=== PATIENT | female | born 1990 | race Caucasian/White ===

== ENCOUNTER 2017-02-13 13:39 | Observation (INO) | payer OTHER ==
[2017-02-13] VITALS (9 sets, daily range): BP systolic 126–165; BP diastolic 67–108; PULSE 54–87; RESP 15–20; TEMP 98–98.4; O2SAT 97–100
[~2017-02-13] VITALS: Ht 154.9 cm; Wt 90.0 kg
[~2017-02-13 13:39] MED LIST: ALEV220T14 PO
--- NOTE | 2017-02-13 14:01 | PD ---
Physical Exam Time Seen by Provider: 14:01 Narrative 26 y/o female with intermittent cp as well as sob, worse when lying down, for the past few days. Vital signs reviewed. Seen at triage desk. Awaiting bed placement. Data Data Last Documented VS Vital Signs Date Time Temp Pulse Resp B/P Pulse Ox O2 Delivery O2 Flow Rate FiO2 02/13/17 13:41 98.4 87 15 165/108 100 MDM Medical Record Reviewed: Yes Supervised Visit with FREDIS: Michele Hector Feb 13, 2017 14:01
[2017-02-13] MEDS ORDERED: SODIUM CHLORIDE 0.9% FLUSH 10 ML FLUSH IVF PRN (15:00)
[2017-02-13] MEDS ORDERED: DICL75TA PO (15:05)
[2017-02-13] MEDS ORDERED: SERT-129 PO (15:05)
[2017-02-13] MEDS ORDERED: LEVO25TA4 PO (15:05)
--- NOTE | 2017-02-13 15:18 | PD ---
HPI Chief Complaint: Chest Pain Time Seen by Provider: 15:05 Travel History International Travel<30 days: No Contact w/Intl Traveler<30days: No Traveled to known affect area: No History of Present Illness HPI 26-year-old female with a PMH of hyperlipidemia, anxiety, PTSD, hypothyroidism has chief complaint of intermittent midsternal chest pain that radiates to her back that lasts several seconds. This is associated with mild constant shortness of breath. She reports chest pain at times is worth with deep inspiration. She is not on hormonal therapy. No recent surgeries. No history of cancer. Reports mother had an WA at age 37. PFSH Past Medical History Asthma: Yes Anxiety: Yes Cancer: No Cardiovascular Problems: No Diabetes: No Diminished Hearing: No Endocrine: No Gastrointestinal Disorders: Yes ("STOMACH ISSUES" AVOIDS GLUTEN ) Genitourinary: No Hepatitis: No Hiatal Hernia: No Immune Disorder: No Medical other: Yes (HIGH TRIGLYCERIDES) Musculoskeletal: Yes (OCCAS MUSCLE SPASMS ) Neurologic: No Psychiatric: Yes (PTSD) Reproductive: No Respiratory: Yes (HX ASTHMA ) Thyroid Disease: Yes (hypo) Tetanus Vaccination: < 5 Years Influenza Vaccination: No ?: Not LMP: 3 weeks ago Past Surgical History Abdominal Surgery: No AICD: No Body Medical Devices: NONE Cardiac Surgery: No Ear Surgery: Yes (PE TUBES AGE 3 ) Endocrine Surgery: No Eye Surgery: No Genitourinary Surgery: No Gynecologic Surgery: No Joint Replacement: No Pacemaker: No Thoracic Surgery: No Tonsillectomy: Yes Tympanostomy Tube: Yes ( BABY) Other Surgery: Yes Social History Alcohol Use: Yes (once a month) Tobacco Use: No Substance Use: No Allergies-Medications (Allergen,Severity, Reaction): Coded Allergies: Shellfish (Verified Allergy, Severe, Hives, 02/13/17) Ceclor (Verified Allergy, Mild, RASH, 02/13/17) CHILDHOOD REACTION - UNKNOWN SPECIFICS Penicillin (Verified Allergy, Mild, RASH, 02/13/17) UNSURE OF REACTION - CHILDHOOD REACTION ADVISED BY PARENTS Suprax (Verified Allergy, Mild, RASH, 02/13/17) CHILDHOOD REACTION - UNKNOWN SPECIFICS Clindamycin (Verified Allergy, Unknown, 02/13/17) DIFFICULTY BREATHING; VOMITTING Sudafed (Unverified Allergy, Unknown, DIZZYNESS & NAUSEA, 02/13/17) Uncoded Allergies: honeysuckle (Allergy, Severe, Anaphylaxis, 02/13/17) Reported Meds & Prescriptions Reported Meds & Active Scripts Active Reported Diclofenac Sodium DR (Diclofenac Sodium) 75 Mg Tabdr 75 Mg PO BID Sertraline (Sertraline HCl) 100 Mg Tab 100 Mg PO DAILY Levothyroxine (Levothyroxine Sodium) 25 Mcg Tab 50 Mcg PO DAILY Review of Systems Except as stated in HPI: all other systems reviewed are Neg General / Constitutional: No: Fever Eyes: No: Visual changes HENT: No: Headaches Cardiovascular: Positive: Chest Pain or Discomfort Respiratory: Positive: Shortness of Breath Genitourinary: No: Dysuria Physical Exam Narrative GENERAL: Alert, well-appearing female in no acute distress. Resting comfortably on stretcher laughing with family member in room. SKIN: Focused skin assessment warm/dry. HEAD: Atraumatic. Normocephalic. EYES: Pupils equal and round. No scleral icterus. No injection or drainage. ENT: No nasal bleeding or discharge. Mucous membranes pink and moist. NECK: Trachea midline. No JVD. CARDIOVASCULAR: Regular rate and rhythm. No murmur appreciated. No murmur or gallop RESPIRATORY: No accessory muscle use. Clear to auscultation. Breath sounds equal bilaterally. GASTROINTESTINAL: Abdomen soft, non-tender, nondistended. Hepatic and splenic margins not palpable. MUSCULOSKELETAL: No obvious deformities. No clubbing. No cyanosis. No edema. NEUROLOGICAL: Awake and alert. No obvious cranial nerve deficits. Motor grossly within normal limits. Normal speech. PSYCHIATRIC: Appropriate mood and affect; insight and judgment normal. Data Data Last Documented VS Vital Signs Date Time Temp Pulse Resp B/P Pulse Ox O2 Delivery O2 Flow Rate FiO2 02/13/17 15:30 62 20 99 Room Air 02/13/17 15:29 138/91 02/13/17 13:41 98.4 Orders Electrocardiogram (02/13/17 15:00) Basic Metabolic Panel (Bmp) (02/13/17 15:00) B-Type Natriuretic Peptide (02/13/17 15:00) Ckmb (Isoenzyme) Profile (02/13/17 15:00) Complete Blood Count With Diff (02/13/17 15:00) D-Dimer (02/13/17 15:00) Troponin I (02/13/17 15:00) Chest, Single Ap (02/13/17 15:00) Ecg Monitoring (02/13/17 15:00) Bilateral Bp Monitoring (02/13/17 15:00) Iv Access Insert/Monitor (02/13/17 15:00) Oximetry (02/13/17 15:00) Sodium Chloride 0.9% Flush (Ns Flush) (02/13/17 15:00) CKMB (02/13/17 15:25) CKMB% (02/13/17 15:25) Admit Order (Ed Use Only) (02/13/17 16:46) Labs Laboratory Tests Test 02/13/17 15:25 White Blood Count 6.2 TH/MM3 Red Blood Count 5.03 MIL/MM3 Hemoglobin 14.6 GM/DL Hematocrit 41.4 % Mean Corpuscular Volume 82.3 FL Mean Corpuscular Hemoglobin 29.1 PG Mean Corpuscular Hemoglobin 35.4 % Concent Red Cell Distribution Width 13.2 % Platelet Count 228 TH/MM3 Mean Platelet Volume 8.5 FL Neutrophils (%) (Auto) 61.5 % Lymphocytes (%) (Auto) 26.4 % Monocytes (%) (Auto) 9.3 % Eosinophils (%) (Auto) 2.5 % Basophils (%) (Auto) 0.3 % Neutrophils # (Auto) 3.8 TH/MM3 Lymphocytes # (Auto) 1.6 TH/MM3 Monocytes # (Auto) 0.6 TH/MM3 Eosinophils # (Auto) 0.2 TH/MM3 Basophils # (Auto) 0.0 TH/MM3 CBC Comment DIFF FINAL Differential Comment D-Dimer Quantitative (PE/DVT) LESS THAN 0.19 MG/L FEU Sodium Level 140 MEQ/L Potassium Level 3.9 MEQ/L Chloride Level 106 MEQ/L Carbon Dioxide Level 25.5 MEQ/L Anion Gap 9 MEQ/L Blood Urea Nitrogen 11 MG/DL Creatinine 0.83 MG/DL Estimat Glomerular Filtration 84 ML/MIN Rate Random Glucose 75 MG/DL Calcium Level 9.1 MG/DL Total Creatine Kinase 193 U/L Creatine Kinase MB 1.2 NG/ML Creatine Kinase MB % 0.6 % Troponin I LESS THAN 0.02 NG/ML B-Type Natriuretic Peptide 27 PG/ML MDM Medical Decision Making Medical Screen Exam Complete: Yes Emergency Medical Condition: Yes Differential Diagnosis ACS, PE, GERD, Costochondritis, PNA, anxiety Narrative Course 26-year-old female with 4 day history of intermittent midsternal nonradiating chest pain lasting several seconds each episode. This is associated with constant mild shortness of breath. Patient has no cardiac history. She reports that her mother had an WA at 37. She was evaluated on an outpatient [facility] clinic on for this chest pain she reports she had a abnormal EKG with inverted T-waves and normal chest x-ray at that time. She was instructed to return for repeat EKG today which she did and they recommended she follow up outpatient. IV access established, chest x-ray ordered and pending, labs ordered and pending. CBC unremarkable BMP unremarkable Cardiac enzymes negative Chest x-ray no acute disease Patient will be admitted to chest pain center for serial EKGs and troponins. Diagnosis Primary Impression: Chest pain Qualified Code: R07.9 - Chest pain, unspecified type Admitting Information Admitting Physician Requests: Admit Eugenia Cain Feb 13, 2017 15:18
--- NOTE | 2017-02-13 15:42 | PD ---
Data Data Last Documented VS Vital Signs Date Time Temp Pulse Resp B/P Pulse Ox O2 Delivery O2 Flow Rate FiO2 02/13/17 15:30 62 20 99 Room Air 02/13/17 15:29 138/91 02/13/17 13:41 98.4 Orders Electrocardiogram (02/13/17 15:00) Basic Metabolic Panel (Bmp) (02/13/17 15:00) B-Type Natriuretic Peptide (02/13/17 15:00) Ckmb (Isoenzyme) Profile (02/13/17 15:00) Complete Blood Count With Diff (02/13/17 15:00) D-Dimer (02/13/17 15:00) Troponin I (02/13/17 15:00) Chest, Single Ap (02/13/17 15:00) Ecg Monitoring (02/13/17 15:00) Bilateral Bp Monitoring (02/13/17 15:00) Iv Access Insert/Monitor (02/13/17 15:00) Oximetry (02/13/17 15:00) Sodium Chloride 0.9% Flush (Ns Flush) (02/13/17 15:00) CKMB (02/13/17 15:25) CKMB% (02/13/17 15:25) Admit Order (Ed Use Only) (02/13/17 16:46) Labs Laboratory Tests Test 02/13/17 15:25 White Blood Count 6.2 TH/MM3 Red Blood Count 5.03 MIL/MM3 Hemoglobin 14.6 GM/DL Hematocrit 41.4 % Mean Corpuscular Volume 82.3 FL Mean Corpuscular Hemoglobin 29.1 PG Mean Corpuscular Hemoglobin 35.4 % Concent Red Cell Distribution Width 13.2 % Platelet Count 228 TH/MM3 Mean Platelet Volume 8.5 FL Neutrophils (%) (Auto) 61.5 % Lymphocytes (%) (Auto) 26.4 % Monocytes (%) (Auto) 9.3 % Eosinophils (%) (Auto) 2.5 % Basophils (%) (Auto) 0.3 % Neutrophils # (Auto) 3.8 TH/MM3 Lymphocytes # (Auto) 1.6 TH/MM3 Monocytes # (Auto) 0.6 TH/MM3 Eosinophils # (Auto) 0.2 TH/MM3 Basophils # (Auto) 0.0 TH/MM3 CBC Comment DIFF FINAL Differential Comment D-Dimer Quantitative (PE/DVT) LESS THAN 0.19 MG/L FEU Sodium Level 140 MEQ/L Potassium Level 3.9 MEQ/L Chloride Level 106 MEQ/L Carbon Dioxide Level 25.5 MEQ/L Anion Gap 9 MEQ/L Blood Urea Nitrogen 11 MG/DL Creatinine 0.83 MG/DL Estimat Glomerular Filtration 84 ML/MIN Rate Random Glucose 75 MG/DL Calcium Level 9.1 MG/DL Total Creatine Kinase 193 U/L Creatine Kinase MB 1.2 NG/ML Creatine Kinase MB % 0.6 % Troponin I LESS THAN 0.02 NG/ML B-Type Natriuretic Peptide 27 PG/ML MDM Supervised Visit with FREDIS: Yes Narrative Course I, Dr. Fournier, have reviewed the advance practice practitioner's documentation and am in agreement, met with the patient face to face, made the diagnosis, and the medical decision making was done by me. *My assessment and Findings: Patient seen and examined by me in addition to Eugenia OBANDO, is a 26-year-old female with a history of hyperlipidemia and family history of heart disease mother had her first heart attack in her early 30s presents emergency department for evaluation of inverted T wave shortness of breath particularly at night and some chest pain in the middle of her chest radiation to her back. Initial workup troponin and d-dimer has been ordered. Will reassess patient after these are done Patient with risk factors was discussed with her inpatient versus outpatient additional workup and she opts for inpatient at this time. Will be placed in the chest pain observation Center. Admitting Information Admitting Physician Requests: Observation Condition: Stable David Fournier MD Feb 13, 2017 15:42
--- NOTE | 2017-02-13 15:43 | RADRPT ---
EXAM DATE/TIME: 02/13/2017 15:07 [facility] COMPARISON: No previous studies available for comparison. INDICATIONS : Shortness of breath. MEDICAL HISTORY : Asthma SURGICAL HISTORY : None. ENCOUNTER: Initial ACUITY: 3 days PAIN SCORE: 2/10 LOCATION: Right chest FINDINGS: A single view of the chest demonstrates the lungs to be symmetrically aerated without evidence of mas s, infiltrate or effusion. The cardiomediastinal contours are unremarkable. Osseous structures are intact. CONCLUSION: Normal examination. Mic Wagner Jr., MD on February 13, 2017 at 15:41 Board Certified Radiologist. This report was verified electronically.
[2017-02-13 15:51] LABS: AUTOMATED NEUTROPHIL # 3.8 TH/MM3 (1.8-7.7); BASOPHIL % 0.3 % (0.0-2.0); EOSINOPHIL # 0.2 TH/MM3 (0-0.4); EOSINOPHIL % 2.5 % (0.0-4.0); HEMATOCRIT 41.4 % (35.0-46.0); HEMO FLAGS DIFF FINAL; LYMPH % 26.4 % (9.0-44.0); LYMPHOCYTE # 1.6 TH/MM3 (1.0-4.8); MEAN CELL VOLUME 82.3 FL (80.0-100.0); MEAN CORPUSCULAR HEMOGLOBIN 29.1 PG (27.0-34.0); MEAN CORPUSCULAR HGB CONC 35.4 % (32.0-36.0); MONO % 9.3 % (0.0-8.0); NEUT % 61.5 % (16.0-70.0); PLATELET COUNT 228 TH/MM3 (150-450); RED BLOOD COUNT 5.03 MIL/MM3 (4.00-5.30); RED CELL DISTRIBUTION WIDTH 13.2 % (11.6-17.2); WHITE BLOOD COUNT 6.2 TH/MM3 (4.0-11.0)
[2017-02-13 16:13] LABS: ANION GAP 9 MEQ/L (5-15); BICARBONATE 25.5 MEQ/L (21.0-32.0); BLOOD UREA NITROGEN 11 MG/DL (7-18); CHLORIDE 106 MEQ/L (98-107); GLOMERULAR FILTRATION RATE 84 ML/MIN (>89); POTASSIUM 3.9 MEQ/L (3.5-5.1); SODIUM (NA) 140 MEQ/L (136-145)
[2017-02-13 16:16] LABS: CREATINE KINASE 193 U/L (26-192)
[2017-02-13 16:29] LABS: CKMB 1.2 NG/ML (0.5-3.6)
--- NOTE | 2017-02-13 17:53 | HHI.HP ---
HPI Primary Care Physician Candi Lewis Chief Complaint Right sided chest wall pain History of Present Illness Mrs. Whelan is a 26-year-old female patient with a known medical history of hyperlipidemia and hypothyroidism who presented to the ED with complaints of right sided chest pain that began on Monday upon awakening. Pain occurred along the right side of the sternum. Denies any radiation. Patient states that the pain was intermittent lasting several seconds over the course of several hours. She states the pain was reproducible upon palpation. Pain was aggravated by deep inspiration and expiration. Patient does complain of associated shortness of breath, intermittent nausea and diaphoresis. She does state that her mother had an AK at the age of 37 of unknown cause. Patient does not have a cardiac history. She did mention that upon her presentation to the [facility] on Monday, non=specific inverted T-waves were seen on her EKG. Review of Systems Respiratory: COMPLAINS OF: Shortness of breath Cardiovascular: COMPLAINS OF: Chest pain Gastrointestinal: COMPLAINS OF: Nausea Endocrine: COMPLAINS OF: Thyroid disease Past Family Social History Allergies: Coded Allergies: Ceclor (Verified Allergy, Mild, RASH, 02/13/17) CHILDHOOD REACTION - UNKNOWN SPECIFICS Penicillin (Verified Allergy, Mild, RASH, 02/13/17) UNSURE OF REACTION - CHILDHOOD REACTION ADVISED BY PARENTS Suprax (Verified Allergy, Mild, RASH, 02/13/17) CHILDHOOD REACTION - UNKNOWN SPECIFICS Clindamycin (Verified Allergy, Unknown, 02/13/17) DIFFICULTY BREATHING; VOMITTING Sudafed (Unverified Allergy, Unknown, DIZZYNESS & NAUSEA, 02/13/17) Past Medical History Asthma Anxiety Hypertriglyceridemia PTSD Hypothyroidism Past Surgical History Tonsillectomy Tympanostomy tubes Reported Medications Reported Meds & Active Scripts Active Reported Diclofenac Sodium DR (Diclofenac Sodium) 75 Mg Tabdr 75 Mg PO BID Sertraline (Sertraline HCl) 100 Mg Tab 100 Mg PO DAILY Levothyroxine (Levothyroxine Sodium) 25 Mcg Tab 25 Mcg PO DAILY Active Ordered Medications Current Medications Medications (Trade) Dose Ordered Sig/Priya Route Start Time Stop Time Status Last Admin (NS Flush) 2 ml UNSCH PRN IVF 02/13/17 15:00 Family History Maternal family medical history significant for cardiovascular disease and known AK at the age of 3737 years old. Social History Patient denies any current or past tobacco use. Admits to occasional alcohol use. Denies any illicit drug use. Physical Exam Vital Signs Vital Signs Date Time Temp Pulse Resp B/P Pulse Ox O2 Delivery O2 Flow Rate FiO2 02/13/17 17:00 54 19 132/67 97 Room Air 02/13/17 15:30 62 20 99 Room Air 02/13/17 15:29 100 Room Air 02/13/17 15:29 64 19 138/91 99 Room Air 02/13/17 15:00 68 19 138/91 98 Room Air 02/13/17 13:41 98.4 87 15 165/108 100 Physical Exam General: Patient denies fevers, chills recent, and recent travel HEENT: Patient denies headache, sore throat, difficulty swallowing. Cardiovascular: Has the chest discomfort as mentioned above. Denies sensation of heart beating rapidly or irregularly. No syncope. Intermittent diaphoresis. Respiratory: Intermittent shortness of breath. Reproducible chest pain. Denies coughing wheezing or hemoptysis. GI: Intermittent nausea. Patient denies vomiting, diarrhea, abdominal pain, bloody stools. Musculoskeletal: Patient denies joint pain or edema. Denies calf pain or edema. Neurovascular: Patient denies numbness, tingling, weakness in extremities. Denies headache. Endocrine: Denies polyuria and polydipsia. Hematologic: Denies easy bruising. Skin: Denies rash or itching. Laboratory Laboratory Tests Test 02/13/17 15:25 White Blood Count 6.2 Red Blood Count 5.03 Hemoglobin 14.6 Hematocrit 41.4 Mean Corpuscular Volume 82.3 Mean Corpuscular Hemoglobin 29.1 Mean Corpuscular Hemoglobin 35.4 Concent Red Cell Distribution Width 13.2 Platelet Count 228 Mean Platelet Volume 8.5 Neutrophils (%) (Auto) 61.5 Lymphocytes (%) (Auto) 26.4 Monocytes (%) (Auto) 9.3 Eosinophils (%) (Auto) 2.5 Basophils (%) (Auto) 0.3 Neutrophils # (Auto) 3.8 Lymphocytes # (Auto) 1.6 Monocytes # (Auto) 0.6 Eosinophils # (Auto) 0.2 Basophils # (Auto) 0.0 CBC Comment DIFF FINAL Differential Comment D-Dimer Quantitative (PE/DVT) LESS THAN 0.19 Sodium Level 140 Potassium Level 3.9 Chloride Level 106 Carbon Dioxide Level 25.5 Anion Gap 9 Blood Urea Nitrogen 11 Creatinine 0.83 Estimat Glomerular Filtration 84 Rate Random Glucose 75 Calcium Level 9.1 Total Creatine Kinase 193 Creatine Kinase MB 1.2 Creatine Kinase MB % 0.6 Troponin I LESS THAN 0.02 B-Type Natriuretic Peptide 27 Result Diagram: 02/13/17 1525 02/13/17 1525 Imaging Last 24 hours Impressions Chest X-Ray 02/13/17 1500 Signed Impressions: Service Date/Time: Monday, February 13, 2017 15:07 - CONCLUSION: Normal examination. Mic Wagner Jr., MD Assessment and Plan Assessment and Plan * Right sided chest pain: likely musculoskeletal in nature. Patient will continue to have serial cardiac enzymes and EKGs for ruling out purposes. She' ll be continued to be monitored overnight for any potential arrhythmias. She'll be seen by Dr. Joaquin in the morning and further plan to the implant at that time. Toradol 30 mg IV ordered x 1. [place] 1 tab q4h PRN per pain scale. * Nausea: Zofran 4 mf IV PRN. * Anxiety: Xanax 0.25 mg q8h PO PRN * Hypothyroidism: Will have a TSH added to lab draw. Patient has been taking current medication regimen for the last 6 months, denies any recent medication change. * Hyperlipidemia: Heart healthy diet. Encourage healthy eating and weight loss. Patient is stable at this time. She is agreeable to this plan. Anders Mcdonald Feb 13, 2017 17:53
[2017-02-13] MEDS ORDERED: KETOROLAC TROMETHAMINE 30 MG/ML (IVP) VIAL IVP ONE (18:00)
[2017-02-13] MEDS ORDERED: SODIUM CHLORIDE 0.9% FLUSH 5 ML FLUSH IVF PRN (18:00)
[2017-02-13] MEDS ORDERED: ONDANSETRON HCL 4 MG/2 ML VIAL IV PRN (18:00)
[2017-02-13] MEDS ORDERED: ACETAMINOPHEN/HYDROcodone 325 MG/7.5 MG TAB PO PRN (18:00)
[2017-02-13] MEDS ORDERED: ACETAMINOPHEN 500 MG CPLT PO PRN (18:00)
[2017-02-13] MEDS ORDERED: ALPRAZolam 0.25 MG TAB PO PRN (18:00)
[2017-02-13] MEDS: PANTOPRAZOLE SOD 40 MG DELAYED RELEASE TAB PO SCH (18:24)
[2017-02-13 19:14] LABS: CREATINE KINASE 169 U/L (26-192)
[2017-02-13 19:26] LABS: CKMB 0.7 NG/ML (0.5-3.6)
[2017-02-13] MEDS: SODIUM CHLORIDE 0.9% FLUSH 5 ML FLUSH IVF SCH (20:54)
[2017-02-13 22:11] LABS: CREATINE KINASE 162 U/L (26-192)
[2017-02-13 22:24] LABS: CKMB 0.8 NG/ML (0.5-3.6)
[2017-02-14 03:56] VITALS: BP 124/79; PULSE 58; RESP 18; TEMP 97.6; O2SAT 98
[2017-02-14 04:28] VITALS: PULSE 54
[2017-02-14] MEDS ORDERED: LEVOTHYROXINE SODIUM 25 MCG TAB PO SCH (06:00)
[2017-02-14 08:04] VITALS: PULSE 56
[2017-02-14 08:16] VITALS: BP 109/74; PULSE 56; RESP 20; TEMP 97.7; O2SAT 96
[2017-02-14] MEDS: PANTOPRAZOLE SOD 40 MG DELAYED RELEASE TAB PO SCH (08:42)
[2017-02-14] MEDS: SODIUM CHLORIDE 0.9% FLUSH 5 ML FLUSH IVF SCH (08:43)
[2017-02-14] MEDS ORDERED: SERTRALINE HCL 100 MG TAB PO SCH (09:00)
[2017-02-14] MEDS ORDERED: ASPIRIN 325 MG TAB PO SCH (09:00)
--- NOTE | 2017-02-14 09:16 | HHI.DCPOC ---
Discharge Care Plan Diagnosis: (1) Musculoskeletal chest pain (2) Situational stress Goals to Promote Your Health * To prevent worsening of your condition and complications * To maintain your health at the optimal level Directions to Meet Your Goals Take your medications as prescribed Follow your dietary instruction Follow activity as directed Keep your appointments as scheduled Take your immunizations and boosters as scheduled If your symptoms worsen call your PCP, if no PCP go to Urgent Care Center or Emergency Room Smoking is Dangerous to Your Health. Avoid second hand smoke Call the 24-hour hour crisis hotline for domestic abuse at [place] Feb 14, 2017 09:15
--- NOTE | 2017-02-14 09:42 | EKG ---
Date Performed: 02/13/2017 Time Performed: 21:27:08 PTAGE: 26 years EKG: SINUS BRADYCARDIA NONSPECIFIC T-WAVE ABNORMALITY BORDERLINE ECG Since PREVIOUS TRACING , no significant change noted PREVIOUS TRACIN02/13/2017 18.18 DOCTOR: Ghislaine Joaquin Interpretating Date/Time 02/14/2017 09:42:21
--- NOTE | 2017-02-14 09:44 | EKG ---
Date Performed: 02/13/2017 Time Performed: 18:18:35 PTAGE: 26 years EKG: SINUS BRADYCARDIA MODERATE T-WAVE ABNORMALITY, CONSIDER ANTERIOR ISCHEMIA ABNORMAL ECG Sinc e PREVIOUS TRACING , no significant change noted PREVIOUS TRACIN02/13/2017 15.13 DOCTOR: Ghislaine Joaquin Interpretating Date/Time 02/14/2017 09:43:39
--- NOTE | 2017-02-14 09:45 | EKG ---
Date Performed: 02/13/2017 Time Performed: 15:13:58 PTAGE: 26 years EKG: Sinus rhythm MODERATE T-WAVE ABNORMALITY, CONSIDER ANTEROLATERAL ISCHEMIA ABNORMAL ECG Since PREVIOUS TRACING , no significant change noted PREVIOUS TRACIN08/11/2009 10.20 DOCTOR: Ghislaine Joaquin Interpretating Date/Time 02/14/2017 09:44:27
== END 2017-02-14 11:41 | disposition home or self-care (01) ==
LOC: NEPD 13:39 → NEDA 16:48 → NEPFCDU 19:09
PROVIDERS: ADMIT Internal Medicine Cardiovascular Disease; ATTEND Internal Medicine Cardiovascular Disease
DX: R07.89 Other chest pain (principal); R11.0 Nausea; F41.9 Anxiety disorder, unspecified; E03.9 Hypothyroidism, unspecified; E78.5 Hyperlipidemia, unspecified; F43.10 Post-traumatic stress disorder, unspecified; R06.02 Shortness of breath; R94.31 Abnormal electrocardiogram [ECG] [EKG]; J45.909 Unspecified asthma, uncomplicated; E78.1 Pure hyperglyceridemia; Z82.49 Family history of ischemic heart disease and other diseases of the circulatory system; Z79.899 Other long term (current) drug therapy
CPT/HCPCS: 71010; 80048; 82550; 82552; 83880; 84443; 84484; 84703; 85025; 85379; 93005; 96374; 99285; G0378; J1885

== ENCOUNTER 2017-07-03 14:01 | Emergency (ER) | payer OTHER ==
[~2017-07-03] VITALS: Ht 156.2 cm; Wt 92.7 kg
[~2017-07-03 14:01] MED LIST changes: -ALEV220T14 PO; +DICL75TA PO; +LEVO25TA4 PO; +SERT-129 PO
[2017-07-03 14:02] VITALS: BP 122/76; PULSE 119; RESP 14; TEMP 98.8; O2SAT 97
[2017-07-03] MEDS ORDERED: IOHEXOL 350 MG/ML 10 ML VIAL (for RAD DIAG) IVCONTRAST ONE (14:02)
[2017-07-03] MEDS ORDERED: SODIUM CHLOR 0.9% 1000 ML INJ 1,000 ML IV SCH (14:51)
--- NOTE | 2017-07-03 14:51 | PD ---
HPI Chief Complaint: Abdominal Pain Time Seen by Provider: 14:39 Travel History International Travel<30 days: No Contact w/Intl Traveler<30days: No Traveled to known affect area: No History of Present Illness HPI 26-year-old female presents to emergency Department with complaint of abdominal cramping, nausea, vomiting, diarrhea that started last night. Denies fevers. Says she is experiencing chest pain and shortness of breath during vomiting only. She has history of chest pain and was seen here at the end of January and was admitted to the chest pain center and was told to follow up outpatient with a curator herbarium. She denies chest pain or shortness of breath without vomiting. Reports left-sided low back pain that started last night also. Denies dysuria , urinary frequency, vaginal discharge, odor. Denies history of abdominal surgeries. Is currently on her menses. Has not taken any medications or tried any treatments to alleviate her symptoms. Thinks that her symptoms may be associated with eating pork yesterday. No known relieving or aggravating factors. Primary care provider is Dr. Lewis. History of PTSD, anxiety, PCO S, asthma, mitral valve regurgitation, introverted T waves on EKG, bradycardia. Has no other medical complaints. No other modifying factors or associated signs and symptoms. PFSH Past Medical History Asthma: Yes Anxiety: Yes Depression: Yes Heart Rhythm Problems: Yes (t wave inversion when she was 18 years old) Cancer: No Cardiac Catheterization: No Cardiovascular Problems: Yes (inverted T-waves, valve regurg) High Cholesterol: Yes Congestive Heart Failure: No Diabetes: No Diminished Hearing: No Endocrine: No Gastrointestinal Disorders: Yes ("STOMACH ISSUES" AVOIDS GLUTEN ) Genitourinary: No Hepatitis: No Hiatal Hernia: No Hypertension: Yes Immune Disorder: No Medical other: Yes (HIGH TRIGLYCERIDES) Musculoskeletal: Yes (OCCAS MUSCLE SPASMS ) Neurologic: No Psychiatric: Yes (PTSD) Reproductive: No Respiratory: Yes (asthma) Immunizations Current: Yes Thyroid Disease: Yes (hypo) Tetanus Vaccination: < 5 Years ?: Past Surgical History Abdominal Surgery: No AICD: No Body Medical Devices: NONE Cardiac Surgery: No Coronary Artery Bypass Graft: No Ear Surgery: Yes (PE TUBES AGE 3 ) Endocrine Surgery: No Eye Surgery: No Genitourinary Surgery: No Gynecologic Surgery: No Joint Replacement: No Neurologic Surgery: No Pacemaker: No Thoracic Surgery: No Tonsillectomy: Yes Tympanostomy Tube: Yes ( BABY) Other Surgery: Yes Family History Family Myocardial Infarction: Yes (maternal & paternal) Social History Alcohol Use: Yes (once a month) Tobacco Use: No Substance Use: No Allergies-Medications (Allergen,Severity, Reaction): Coded Allergies: shellfish derived (Unverified Allergy, Severe, Hives, 07/03/17) cefaclor (Unverified Allergy, Mild, RASH, 07/03/17) CHILDHOOD REACTION - UNKNOWN SPECIFICS cefixime (Unverified Allergy, Mild, RASH, 07/03/17) CHILDHOOD REACTION - UNKNOWN SPECIFICS penicillin G (Unverified Allergy, Mild, RASH, 07/03/17) UNSURE OF REACTION - CHILDHOOD REACTION ADVISED BY PARENTS clindamycin (Unverified Allergy, Unknown, 07/03/17) DIFFICULTY BREATHING; VOMITTING pseudoephedrine (Unverified Allergy, Unknown, DIZZYNESS & NAUSEA, 07/03/17 ) Uncoded Allergies: honeysuckle (Allergy, Severe, Anaphylaxis, 02/13/17) Reported Meds & Prescriptions Reported Meds & Active Scripts Active Zofran Odt (Ondansetron Odt) 4 Mg Tab 4 Mg SL Q8HR PRN Reported Diclofenac Sodium DR (Diclofenac Sodium) 75 Mg Tabdr 75 Mg PO BID Sertraline (Sertraline HCl) 100 Mg Tab 100 Mg PO DAILY Levothyroxine (Levothyroxine Sodium) 25 Mcg Tab 50 Mcg PO DAILY Review of Systems Except as stated in HPI: all other systems reviewed are Neg Physical Exam Narrative GENERAL: Well-nourished, well-developed female patient, in no acute distress; afebrile SKIN: Warm and dry. HEAD: Atraumatic. Normocephalic. EYES: Pupils equal and round. No scleral icterus. No injection or drainage. ENT: Mucosa pink and moist. Airway patent. NECK: Trachea midline. CARDIOVASCULAR: Regular rate and rhythm. No murmur appreciated. RESPIRATORY: No accessory muscle use. Clear to auscultation. Breath sounds equal bilaterally. GASTROINTESTINAL: Abdomen soft, tenderness on palpation to epigastric region, nondistended. Hepatic and splenic margins not palpable. Negative Walker's sign Bowel sounds are active 4 quadrants. Nonrigid. No rebound tenderness. No guarding. BACK: No CVA tenderness. MUSCULOSKELETAL: No obvious deformities. No clubbing. No cyanosis. No edema. NEUROLOGICAL: Awake and alert. Oriented 3. No obvious cranial nerve deficits. Motor grossly within normal limits. Normal speech. PSYCHIATRIC: Appropriate mood and affect; insight and judgment normal. Data Data Last Documented VS Vital Signs Date Time Temp Pulse Resp B/P (MAP) Pulse Ox O2 Delivery O2 Flow Rate FiO2 07/03/17 17:21 82 18 110/80 (90) 98 07/03/17 14:02 98.8 Orders Orders Complete Blood Count With Diff (07/03/17 14:16) Comprehensive Metabolic Panel (07/03/17 14:16) Lipase (07/03/17 14:16) Prothrombin Time / Inr (Pt) (07/03/17 14:16) Act Partial Throm Time (Ptt) (07/03/17 14:16) Urinalysis - C+S If Indicated (07/03/17 14:16) Ed Urine Pregnancytest Poc (07/03/17 14:16) Iv Access Insert/Monitor (07/03/17 14:51) Ecg Monitoring (07/03/17 14:51) Oximetry (07/03/17 14:51) Ondansetron Inj (Zofran Inj) (07/03/17 15:00) Sodium Chlor 0.9% 1000 Ml Inj (Ns 1000 M (07/03/17 14:51) Sodium Chloride 0.9% Flush (Ns Flush) (07/03/17 15:00) Ct Abd/Pel W Iv Contrast(Rout) (07/03/17 15:08) Electrocardiogram (07/03/17 15:09) Chest, Single Ap (07/03/17 15:09) Iohexol 350 Inj (Omnipaque 350 Inj) (07/03/17 14:02) Ed Discharge Order (07/03/17 16:50) Labs Laboratory Tests Test 07/03/17 15:00 07/03/17 15:04 Urine Color YELLOW Urine Turbidity HAZY Urine pH 5.0 Urine Specific [place] 1.026 Urine Protein TRACE mg/dL Urine Glucose (UA) NEG mg/dL Urine Ketones NEG mg/dL Urine Occult Blood LARGE Urine Nitrite NEG Urine Bilirubin NEG Urine Urobilinogen LESS THAN 2.0 MG/DL Urine Leukocyte Esterase SMALL Urine RBC 47 /hpf Urine WBC 5 /hpf Urine Squamous Epithelial Cells 6 /hpf Urine Bacteria OCC /hpf Urine Mucus FEW /lpf Microscopic Urinalysis Comment CULT NOT INDICATED White Blood Count 10.7 TH/MM3 Red Blood Count 5.17 MIL/MM3 Hemoglobin 14.6 GM/DL Hematocrit 42.7 % Mean Corpuscular Volume 82.7 FL Mean Corpuscular Hemoglobin 28.3 PG Mean Corpuscular Hemoglobin Concent 34.3 % Red Cell Distribution Width 13.2 % Platelet Count 194 TH/MM3 Mean Platelet Volume 7.9 FL Neutrophils (%) (Auto) 89.5 % Lymphocytes (%) (Auto) 4.0 % Monocytes (%) (Auto) 5.3 % Eosinophils (%) (Auto) 1.0 % Basophils (%) (Auto) 0.2 % Neutrophils # (Auto) 9.6 TH/MM3 Lymphocytes # (Auto) 0.4 TH/MM3 Monocytes # (Auto) 0.6 TH/MM3 Eosinophils # (Auto) 0.1 TH/MM3 Basophils # (Auto) 0.0 TH/MM3 CBC Comment DIFF FINAL Differential Comment Prothrombin Time 10.1 SEC Prothromb Time International Ratio 1.0 RATIO Activated Partial Thromboplast Time 24.1 SEC Blood Urea Nitrogen 14 MG/DL Creatinine 0.84 MG/DL Random Glucose 92 MG/DL Total Protein 7.9 GM/DL Albumin 4.3 GM/DL Calcium Level 9.0 MG/DL Alkaline Phosphatase 72 U/L Aspartate Amino Transf (AST/SGOT) 35 U/L Alanine Aminotransferase (ALT/SGPT) 48 U/L Total Bilirubin 0.4 MG/DL Sodium Level 140 MEQ/L Potassium Level 4.2 MEQ/L Chloride Level 107 MEQ/L Carbon Dioxide Level 23.1 MEQ/L Anion Gap 10 MEQ/L Estimat Glomerular Filtration Rate 83 ML/MIN Lipase 133 U/L [facility] Medical Decision Making Medical Screen Exam Complete: Yes Emergency Medical Condition: Yes Medical Record Reviewed: Yes Differential Diagnosis Gastroenteritis, gastritis, nausea, vomiting, nonspecific abdominal pain Narrative Course 26-year-old female with abdominal pain, vomiting, diarrhea since last night. CBC, CMP, lipase, urinalysis, UPT, normal saline bolus, Zofran, CT abdomen/ pelvis ordered. UPT negative. 1643: CBC unremarkable. Coags unremarkable. CMP unremarkable. Urinalysis without signs of infection. Chest x-ray and CT abdomen/pelvis concludes: Last 24 hours Impressions Chest X-Ray 12/18/17 1509 Signed Impressions: Service Date/Time: Monday, July 03, 2017 15:17 - CONCLUSION: No acute disease. Mic Wagner Jr., MD Abdomen/Pelvis CT 07/03/17 1508 Signed Impressions: Service Date/Time: Monday, July 03, 2017 15:48 - CONCLUSION: Replacement the liver otherwise negative. Amanuel Iyer MD FACR Patient provided copy of the CT report. Discussed findings of the chest x-ray. 1659: EKG with sinus rhythm with sinus arrhythmia; Reviewed by Dr. Hector. Mone prescribed for home. Instructed patient to follow up with primary care provider. Patient verbalizes understanding and agreement with treatment plan. Patient is medically cleared and stable for discharge. Discussed reasons to return to the emergency department. Patient agrees with treatment plan. The patients vital signs are stable and the patient is stable for outpatient follow- up and treatment. Patient discharged home, stable and in no acute distress. Diagnosis Primary Impression: Gastroenteritis Referrals: Assistant Toddler Teacher Primary Care Physician Patient Instructions: Gastroenteritis (ED), General Instructions Departure Forms: Tests/Procedures, Work Release Enter return to work date: Jul 05, 2017 Additional Instructions: Take Reglan as prescribed for nausea/vomiting Increase fluid intake, starting with clear fluids; advancing to a bland diet as tolerated [place] diet to include crackers, rice, toast, bananas as tolerated, advancing slowly to regular diet Follow-up primary care provider in next 1-2 days Return to emergency department immediately Med/Other Pt SpecificInfo: Prescription(s) given Scripts Ondansetron Odt (Zofran Odt) 4 Mg Tab 4 MG SL Q8HR Y for Nausea/Vomiting, #6 TAB 0 Refills Prov: Radha Cuadra 07/03/17 Disposition: DISCHARGE HOME Condition: Stable Radha Cuadra Jul 03, 2017 14:51
[2017-07-03] MEDS ORDERED: SODIUM CHLORIDE 0.9% FLUSH 10 ML FLUSH IV FLUSH PRN (15:00)
[2017-07-03] MEDS ORDERED: ONDANSETRON HCL 4 MG/2 ML VIAL IVP ONE (15:00)
--- NOTE | 2017-07-03 15:38 | RADRPT ---
EXAM DATE/TIME: 07/03/2017 15:17 [facility] COMPARISON: CHEST SINGLE AP, February 13, 2017, 15:07. INDICATIONS : Chest pain. Nausea and vomiting also. MEDICAL HISTORY : Asthma. SURGICAL HISTORY : None. ENCOUNTER: Initial ACUITY: 1 day PAIN SCORE: 5/10 LOCATION: Bilateral chest FINDINGS: A single view of the chest demonstrates the lungs to be symmetrically aerated without evidence of mas s, infiltrate or effusion. The cardiomediastinal contours are unremarkable. Osseous structures are intact. CONCLUSION: No acute disease. Mic Wagner Jr., MD on July 03, 2017 at 15:35 Board Certified Radiologist. This report was verified electronically.
[2017-07-03 16:00] VITALS: BP 118/66; PULSE 92; RESP 16; O2SAT 100
[2017-07-03 16:18] LABS: AUTOMATED NEUTROPHIL # 9.6 TH/MM3 (1.8-7.7); BASOPHIL % 0.2 % (0.0-2.0); EOSINOPHIL # 0.1 TH/MM3 (0-0.4); HEMATOCRIT 42.7 % (35.0-46.0); HEMOGLOBIN 14.6 GM/DL (11.6-15.3); LYMPHOCYTE # 0.4 TH/MM3 (1.0-4.8); MEAN CELL VOLUME 82.7 FL (80.0-100.0); MEAN CORPUSCULAR HEMOGLOBIN 28.3 PG (27.0-34.0); MEAN CORPUSCULAR HGB CONC 34.3 % (32.0-36.0); MEAN PLATELET VOLUME 7.9 FL (7.0-11.0); MONO % 5.3 % (0.0-8.0); MONOCYTE # 0.6 TH/MM3 (0-0.9); NEUT % 89.5 % (16.0-70.0); PLATELET COUNT 194 TH/MM3 (150-450); RED BLOOD COUNT 5.17 MIL/MM3 (4.00-5.30); RED CELL DISTRIBUTION WIDTH 13.2 % (11.6-17.2); WHITE BLOOD COUNT 10.7 TH/MM3 (4.0-11.0)
[2017-07-03 16:22] LABS: BACTERIA, URINE OCC /hpf; BILIRUBIN, URINE NEG (NEG); BLOOD, URINE LARGE (NEG); GLUCOSE,URINE NEG (NEG); KETONE, URINE NEG (NEG); MUCUS URINE FEW /lpf (OCC); NITRITE,URINE NEG (NEG); SQUAMOUS EPITHELIAL CELL URINE 6 /hpf (0-5); URINE COLOR YELLOW (YELLW/STRAW); URINE LEUKOCYTE ESTERASE SMALL (NEG)
--- NOTE | 2017-07-03 16:29 | RADRPT ---
EXAM DATE/TIME: 07/03/2017 15:48 [place] Corrected on: July 03, 2017; [facility] COMPARISON: No previous studies available for comparison. INDICATIONS : Patient complains of nausea and vomiting with abdominal pain. IV CONTRAST: 100 cc Omnipaque 350 (iohexol) IV ORAL CONTRAST: No oral contrast ingested. RADIATION DOSE: 16.49 CTDIvol (mGy) MEDICAL HISTORY : Hypertension. Cardiovascular disease SURGICAL HISTORY : None. ENCOUNTER: Initial ACUITY: 2 days PAIN SCALE: 5/10 LOCATION: abdomen TECHNIQUE: Volumetric scanning of the abdomen and pelvis was performed. Using automated exposure control and ad justment of the mA and/or kV according to patient size, radiation dose was kept as low as reasonably achievable to obtain optimal diagnostic quality images. DICOM format image data is available electro nically for review and comparison. FINDINGS: Lung base is are clear. There is moderate fatty replacement of the liver The spleen, pancreas and adrenal glands unremarkable Small splenial is noted There is symmetrical renal function Alayna the cecum and terminal unremarkable Uterus is unremarkable. There is no free fluid or free air Bowel gas pattern is unremarkable. CONCLUSION: Fatty replacement of the liver otherwise negative.. Amanuel Iyer MD FACR on July 03, 2017 at 16:25 Board Certified Radiologist. This report was verified electronically. Amanuel Iyer MD FACR on July 03, 2017 at 16:51 Board Certified Radiologist. This report was verified electronically.
[2017-07-03 16:35] LABS: ALBUMIN 4.3 GM/DL (3.4-5.0); ALT (GPT) 48 U/L (10-53); AST (GOT) 35 U/L (15-37); BICARBONATE 23.1 MEQ/L (21.0-32.0); BLOOD UREA NITROGEN 14 MG/DL (7-18); CHLORIDE 107 MEQ/L (98-107); CREATININE 0.84 MG/DL (0.50-1.00); GLOMERULAR FILTRATION RATE 83 ML/MIN (>89); GLUCOSE,RANDOM 92 MG/DL (74-106); LIPASE 133 U/L (73-393); SODIUM (NA) 140 MEQ/L (136-145)
[2017-07-03 16:37] LABS: ALKALINE PHOSPHATASE 72 U/L (45-117); TOTAL BILIRUBIN ADULT 0.4 MG/DL (0.2-1.0); TOTAL PROTEIN 7.9 GM/DL (6.4-8.2)
[2017-07-03 16:38] LABS: PROTHROMBIN TIME - PATIENT 10.1 SEC (9.8-11.6)
[2017-07-03] MEDS ORDERED: ZOFR4TAB3 SL (16:47)
[2017-07-03 17:21] VITALS: BP 110/80
--- NOTE | 2017-07-04 12:42 | EKG ---
Date Performed: 07/03/2017 Time Performed: 16:56:46 PTAGE: 26 years EKG: Sinus rhythm WITH SINUS ARRHYTHMIA MODERATE T-WAVE ABNORMALITY, CONSIDER ANTERIOR ISCHEMIA ABNORMAL ECG PREVIOUS TRACING : 02/13/2017 21.27 Since previous tracing, no significant change noted DOCTOR: John De La Cruz Interpretating Date/Time 07/04/2017 12:40:48
== END 2017-07-03 17:26 | disposition home or self-care (01) ==
LOC: NEPD 14:01
DX: K52.9 Noninfective gastroenteritis and colitis, unspecified (principal); E03.9 Hypothyroidism, unspecified; R07.9 Chest pain, unspecified
CPT/HCPCS: 71010; 74177; 80053; 81001; 83690; 84703; 85025; 85610; 85730; 93005; 96374; 99285; J2405; J7030; Q9967

== ENCOUNTER 2017-10-01 15:43 | Emergency (ER) | payer SELFPAY ==
[~2017-10-01] VITALS: Ht 154.9 cm; Wt 92.0 kg
[~2017-10-01 15:43] MED LIST changes: +ZOFR4TAB3 SL
[2017-10-01 15:53] VITALS: BP 125/60; PULSE 68; RESP 18; TEMP 97.6; O2SAT 99
[2017-10-01 16:52] LABS: AUTOMATED NEUTROPHIL # 3.8 TH/MM3 (1.8-7.7); BASOPHIL % 0.4 % (0.0-2.0); EOSINOPHIL # 0.2 TH/MM3 (0-0.4); EOSINOPHIL % 3.2 % (0.0-4.0); HEMATOCRIT 39.3 % (35.0-46.0); HEMOGLOBIN 13.5 GM/DL (11.6-15.3); LYMPH % 24.6 % (9.0-44.0); LYMPHOCYTE # 1.5 TH/MM3 (1.0-4.8); MEAN CELL VOLUME 81.1 FL (80.0-100.0); MEAN CORPUSCULAR HEMOGLOBIN 27.9 PG (27.0-34.0); MEAN CORPUSCULAR HGB CONC 34.4 % (32.0-36.0); MEAN PLATELET VOLUME 7.7 FL (7.0-11.0); MONO % 8.2 % (0.0-8.0); MONOCYTE # 0.5 TH/MM3 (0-0.9); NEUT % 63.6 % (16.0-70.0); PLATELET COUNT 231 TH/MM3 (150-450); RED BLOOD COUNT 4.85 MIL/MM3 (4.00-5.30)
[2017-10-01 17:22] LABS: ALBUMIN 4.4 GM/DL (3.4-5.0); ALT (GPT) 38 U/L (10-53); AST (GOT) 33 U/L (15-37); BICARBONATE 26.3 MEQ/L (21.0-32.0); BLOOD UREA NITROGEN 9 MG/DL (7-18); CALCIUM 9.2 MG/DL (8.5-10.1); CHLORIDE 103 MEQ/L (98-107); CREATININE 0.85 MG/DL (0.50-1.00); GLOMERULAR FILTRATION RATE 81 ML/MIN (>89); GLUCOSE,RANDOM 82 MG/DL (74-106); SODIUM (NA) 139 MEQ/L (136-145)
[2017-10-01 17:25] LABS: ALKALINE PHOSPHATASE 61 U/L (45-117); TOTAL BILIRUBIN ADULT 0.3 MG/DL (0.2-1.0); TOTAL PROTEIN 7.6 GM/DL (6.4-8.2)
--- NOTE | 2017-10-01 18:24 | PD ---
HPI Chief Complaint: Dizziness Time Seen by Provider: 18:12 Travel History International Travel<30 days: No Contact w/Intl Traveler<30days: No Traveled to known affect area: No History of Present Illness HPI 26-year-old female here for evaluation of dizziness and headache. The patient reports that for the last 2 days she has been having dizziness/vertiginous type symptoms. Symptoms seem to be constant, sometimes worse with movements. Patient reports an episode of blurred vision which has resolved as well as feeling as though she may pass out. Headache started today and is frontal, pressure-like, 4 out of 10. She reports history of migraines, however states this feels different. No paresthesias or motor deficits. She is not sure if she has had a fever. PFSH Past Medical History Asthma: Yes Anxiety: Yes Depression: Yes Heart Rhythm Problems: Yes (t wave inversion when she was 18 years old) Cancer: No Cardiac Catheterization: No Cardiovascular Problems: Yes (inverted T-waves, valve regurg) High Cholesterol: Yes Congestive Heart Failure: No Diabetes: No Diminished Hearing: No Endocrine: No Gastrointestinal Disorders: Yes ("STOMACH ISSUES" AVOIDS GLUTEN ) Genitourinary: No Hepatitis: No Hiatal Hernia: No Hypertension: Yes Immune Disorder: No Musculoskeletal: Yes (OCCAS MUSCLE SPASMS ) Neurologic: No Psychiatric: Yes (PTSD) Reproductive: No Respiratory: Yes (asthma) Immunizations Current: Yes Thyroid Disease: Yes (hypo) Past Surgical History Abdominal Surgery: No AICD: No Body Medical Devices: NONE Cardiac Surgery: No Coronary Artery Bypass Graft: No Ear Surgery: Yes (PE TUBES AGE 3 ) Endocrine Surgery: No Eye Surgery: No Genitourinary Surgery: No Gynecologic Surgery: No Joint Replacement: No Neurologic Surgery: No Pacemaker: No Thoracic Surgery: No Tonsillectomy: Yes Tympanostomy Tube: Yes ( BABY) Other Surgery: Yes Social History Alcohol Use: Yes (once a month) Tobacco Use: No (quit/dip) Substance Use: No Allergies-Medications (Allergen,Severity, Reaction): Coded Allergies: shellfish derived (Unverified Allergy, Severe, Hives, 10/01/17) cefaclor (Unverified Allergy, Mild, RASH, 10/01/17) CHILDHOOD REACTION - UNKNOWN SPECIFICS cefixime (Unverified Allergy, Mild, RASH, 10/01/17) CHILDHOOD REACTION - UNKNOWN SPECIFICS penicillin G (Unverified Allergy, Mild, RASH, 10/01/17) UNSURE OF REACTION - CHILDHOOD REACTION ADVISED BY PARENTS clindamycin (Unverified Allergy, Unknown, 10/01/17) DIFFICULTY BREATHING; VOMITTING pseudoephedrine (Unverified Allergy, Unknown, DIZZYNESS & NAUSEA, 10/01/17) Uncoded Allergies: honeysuckle (Allergy, Severe, Anaphylaxis, 02/13/17) Reported Meds & Prescriptions Reported Meds & Active Scripts Active Zofran Odt (Ondansetron Odt) 4 Mg Tab 4 Mg SL Q8HR PRN Reported Diclofenac Sodium DR (Diclofenac Sodium) 75 Mg Tabdr 75 Mg PO BID Sertraline (Sertraline HCl) 100 Mg Tab 100 Mg PO DAILY Levothyroxine (Levothyroxine Sodium) 25 Mcg Tab 50 Mcg PO DAILY Review of Systems Except as stated in HPI: all other systems reviewed are Neg Physical Exam Narrative GENERAL: Well-developed, well-nourished, awake, alert, GCS 15, no apparent distress. SKIN: Focused skin assessment warm/dry. HEAD: Atraumatic. Normocephalic. EYES: Pupils equal, round, 3 mm, reactive to light. No scleral icterus. No injection or drainage. ENT: No nasal bleeding or discharge. Mucous membranes pink and moist. Bilateral tympanic membranes and external auditory canals are normal. NECK: Trachea midline. No JVD. No nuchal rigidity. CARDIOVASCULAR: Regular rate and rhythm. RESPIRATORY: No accessory muscle use. GASTROINTESTINAL: Abdomen soft, non-tender, nondistended. MUSCULOSKELETAL: No obvious deformities. No clubbing. No cyanosis. No edema. NEUROLOGICAL: Awake and alert. No obvious cranial nerve deficits. Motor grossly within normal limits. Normal speech. Ambulated to the restroom without difficulty and without assistance with a normal gait. PSYCHIATRIC: Appropriate mood and affect; insight and judgment normal. Data Data Last Documented VS Vital Signs Date Time Temp Pulse Resp B/P (MAP) Pulse Ox O2 Delivery O2 Flow Rate FiO2 10/01/17 19:01 18 100 10/01/17 15:53 97.6 68 125/60 (81) Orders Orders Electrocardiogram (10/01/17 15:56) Complete Blood Count With Diff (10/01/17 15:56) Comprehensive Metabolic Panel (10/01/17 15:56) Urinalysis - C+S If Indicated (10/01/17 18:18) Ed Urine Pregnancytest Poc (10/01/17 18:18) Ct Brain W/O Iv Contrast(Rout) (10/01/17 ) Thyroid Stimulating Hormone (10/01/17 18:18) Sodium Chlor 0.9% 1000 Ml Inj (Ns 1000 M (10/01/17 18:30) Ketorolac Inj (Toradol Inj) (10/01/17 18:30) Metoclopramide Inj (Reglan Inj) (10/01/17 18:30) Meclizine (Antivert) (10/01/17 18:30) Electrocardiogram (10/01/17 ) Labs Laboratory Tests Test 10/01/17 16:15 10/01/17 19:00 White Blood Count 6.0 TH/MM3 Red Blood Count 4.85 MIL/MM3 Hemoglobin 13.5 GM/DL Hematocrit 39.3 % Mean Corpuscular Volume 81.1 FL Mean Corpuscular Hemoglobin 27.9 PG Mean Corpuscular Hemoglobin Concent 34.4 % Red Cell Distribution Width 13.0 % Platelet Count 231 TH/MM3 Mean Platelet Volume 7.7 FL Neutrophils (%) (Auto) 63.6 % Lymphocytes (%) (Auto) 24.6 % Monocytes (%) (Auto) 8.2 % Eosinophils (%) (Auto) 3.2 % Basophils (%) (Auto) 0.4 % Neutrophils # (Auto) 3.8 TH/MM3 Lymphocytes # (Auto) 1.5 TH/MM3 Monocytes # (Auto) 0.5 TH/MM3 Eosinophils # (Auto) 0.2 TH/MM3 Basophils # (Auto) 0.0 TH/MM3 CBC Comment DIFF FINAL Differential Comment Blood Urea Nitrogen 9 MG/DL Creatinine 0.85 MG/DL Random Glucose 82 MG/DL Total Protein 7.6 GM/DL Albumin 4.4 GM/DL Calcium Level 9.2 MG/DL Alkaline Phosphatase 61 U/L Aspartate Amino Transf (AST/SGOT) 33 U/L Alanine Aminotransferase (ALT/SGPT) 38 U/L Total Bilirubin 0.3 MG/DL Sodium Level 139 MEQ/L Potassium Level 4.1 MEQ/L Chloride Level 103 MEQ/L Carbon Dioxide Level 26.3 MEQ/L Anion Gap 10 MEQ/L Estimat Glomerular Filtration Rate 81 ML/MIN Thyroid Stimulating Hormone 3rd Gen 2.430 uIU/ML Urine Color LIGHT-YELLOW Urine Turbidity CLEAR Urine pH 7.0 Urine Specific [place] 1.006 Urine Protein NEG mg/dL Urine Glucose (UA) NEG mg/dL Urine Ketones NEG mg/dL Urine Occult Blood NEG Urine Nitrite NEG Urine Bilirubin NEG Urine Urobilinogen LESS THAN 2.0 MG/DL Urine Leukocyte Esterase NEG Urine WBC LESS THAN 1 /hpf Urine Squamous Epithelial Cells 1 /hpf Microscopic Urinalysis Comment CULT NOT INDICATED MDM Medical Decision Making Medical Screen Exam Complete: Yes Emergency Medical Condition: Yes Interpretation(s) EKG: Sinus, rate 67, normal axis, normal intervals, T-wave inversions in precordial leads which are unchanged from prior when the patient was admitted to the chest pain center last year. Differential Diagnosis Vertigo, intracranial abnormality, UTI, metabolic abnormality, hypothyroidism Narrative Course Vital signs are within normal limits. CBC is unremarkable. CMP is unremarkable. TSH is 2.43. UA is not suggestive of UTI. CT head shows no acute intracranial abnormality. Patient was made aware of all findings. She was given Toradol, Reglan, normal saline IV, and meclizine. On reassessment she is resting comfortably. She is ambulated to and from the restroom a couple of times while in the emergency department with a normal gait. On reassessment she is no longer dizzy. She still has a slight frontal headache. At this point I believe she is stable for discharge home with outpatient follow-up. I will give her the name of the neurologist stone crusher operator with him to follow-up with as well as information to the [facility] as she tells me she no longer has insurance. She was advised on when to return to the emergency department. She verbalizes understanding and agreement with plan. Diagnosis Primary Impression: Dizziness Additional Impression: Headache Qualified Codes: R51 - Headache Referrals: Dileep Mccain MD 3 days Neurologist [facility] 3 days Additional Instructions: Follow-up with a primary care physician this week. Follow-up with neurologist Dr. Mccain or a neurologist of your choice this week. Return to the emergency department for worsening symptoms or any other concerns. Scripts Meclizine (Meclizine) 25 Mg Tab 25 MG PO TID Y for VERTIGO, #20 TAB 0 Refills Prov: Cullen Marinelli MD 10/01/17 Cullen Marinelli MD Oct 01, 2017 18:24
[2017-10-01] MEDS ORDERED: MECLIZINE HCL 25 MG TAB PO ONE (18:30)
[2017-10-01] MEDS ORDERED: KETOROLAC TROMETHAMINE 30 MG/ML (IVP) VIAL IV PUSH ONE (18:30)
[2017-10-01] MEDS ORDERED: SODIUM CHLOR 0.9% 1000 ML INJ 1,000 ML IV ONE (18:30)
[2017-10-01] MEDS ORDERED: METOCLOPRAMIDE HCL 10 MG/2 ML VIAL IV PUSH ONE (18:30)
--- NOTE | 2017-10-01 19:26 | RADRPT ---
EXAM DATE/TIME: 10/01/2017 19:12 [facility] COMPARISON: No previous studies available for comparison. INDICATIONS : Dizziness and blurred vision. RADIATION DOSE: 35.41 CTDIvol (mGy) MEDICAL HISTORY : Hypertension. Cardiovascular disease Hypothyroidism. SURGICAL HISTORY : None. ENCOUNTER: Initial ACUITY: 1 day PAIN SCALE: 0/10 LOCATION: cranial TECHNIQUE: Multiple contiguous axial images were obtained of the head. Using automated exposure control and adj ustment of the mA and/or kV according to patient size, radiation dose was kept as low as reasonably a chievable to obtain optimal diagnostic quality images. DICOM format image data is available electro nically for review and comparison. FINDINGS: CEREBRUM: The ventricles are normal for age. No evidence of midline shift, mass lesion, hemorrhage or acute in farction. No extra-axial fluid collections are seen. POSTERIOR FOSSA: The cerebellum and brainstem are intact. The 4th ventricle is midline. The cerebellopontine angle i s unremarkable. EXTRACRANIAL: The visualized portion of the orbits is intact. SKULL: The calvaria is intact. No evidence of skull fracture. CONCLUSION: 1. No acute intracranial abnormalities. Sarath Mancilla MD on October 01, 2017 at 19:22 Board Certified Radiologist. This report was verified electronically.
[2017-10-01 19:36] LABS: BILIRUBIN, URINE NEG (NEG); BLOOD, URINE NEG (NEG); GLUCOSE,URINE NEG (NEG); KETONE, URINE NEG (NEG); NITRITE,URINE NEG (NEG); SQUAMOUS EPITHELIAL CELL URINE 1 /hpf (0-5); URINE COLOR LIGHT-YELLOW (YELLW/STRAW); URINE LEUKOCYTE ESTERASE NEG (NEG)
[2017-10-01] MEDS ORDERED: MECL-62 PO (19:52)
[2017-10-01 19:59] VITALS: BP 104/55; PULSE 63; RESP 18; O2SAT 100
--- NOTE | 2017-10-02 11:48 | EKG ---
Date Performed: 10/01/2017 Time Performed: 19:23:30 PTAGE: 26 years EKG: Sinus rhythm MODERATE T-WAVE ABNORMALITY, CONSIDER ANTERIOR ISCHEMIA Since the previous tracing, no significant c hange noted ABNORMAL ECG PREVIOUS TRACING : 07/03/2017 16.56 DOCTOR: Ghislaine Joaquin Interpretating Date/Time 10/02/2017 11:46:12
== END 2017-10-01 20:42 | disposition home or self-care (01) ==
LOC: NEPD 15:43
DX: R42 Dizziness and giddiness (principal); R51 Headache; E03.9 Hypothyroidism, unspecified
CPT/HCPCS: 70450; 80053; 81001; 84443; 84703; 85025; 93005; 96374; 96375; 99285; J1885; J2765; J7030